=== PATIENT | male | born 1970 | race Caucasian/White ===

== ENCOUNTER → 2024-01-16 06:32 | Day surgery (SDC) | payer BC, SELFPAY | LOC: GI 06:32 | PROVIDERS: ATTENDING PHYSICIAN Internal Medicine Gastroenterology | DX: Z12.11 Encounter for screening for malignant neoplasm of colon (principal); Z86.010 Personal history of colon polyps; K64.8 Other hemorrhoids | CPT/HCPCS: G0105 ==

== ENCOUNTER 2024-11-28 21:49 | Emergency (ER) | payer BC, SELFPAY ==
[2024-11-28 21:56] VITALS: BP 187/95
[2024-11-28 22:16] LABS: % Basophils 0.7 % (0-2); % Eosinophils 1.7 % (0-6); % Immature Granulocytes 0.2 % (0-0.5); % Lymphocytes 29.4 % (20.5-51.1); % Monocytes 9.6 % (1.7-9.3); % Neutrophils 58.4 % (42.2-75.2); Absolute Basophils 0.1 10^3/uL (0-0.2); Absolute Eosinophils 0.1 10^3/uL (0-0.7); Absolute Lymphocytes 2.5 10^3/uL (1.2-3.4); Absolute Monocytes 0.8 10^3/uL (0.1-0.6); Absolute Neutrophils 4.9 10^3/uL (1.4-6.5); Hemoglobin 15.2 g/dL (13.0-18.0); Mean Corp Hgb Conc. 35.3 g/dL (33.0-37.0); Mean Corpuscular Hgb 29.9 pg (27.0-31.0); Mean Corpuscular Volume 84.6 fL (80.0-94.0); Mean Platelet Volume 9.1 fL (7.4-10.4); Nucleated Red Blood Cells % 0 % (-); Platelet Count 217 10^3/uL (130-400); Red Blood Cell Count 5.08 10^6/uL (4.70-6.10); Red Cell Dist. Width 11.9 % (11.5-14.5); White Blood Cell Count 8.3 10^3/uL (4.8-10.8)
[2024-11-28 22:38] LABS: ALT (SGPT) 75 U/L (0-50); AST (SGOT) 38 U/L (17-59); Albumin 4.8 g/dl (3.5-5.0); Alkaline Phosphatase 73 U/L (38-126); Blood Urea Nitrogen 24 mg/dl (9-20); Calcium 9.6 mg/dl (8.4-10.2); Carbon Dioxide 25 mmol/L (22-30); Chloride 106 mmol/L (98-107); Glucose 144 mg/dl (70-99); Potassium 3.8 mmol/L (3.5-5.1); Sodium 140 mmol/L (135-145); Total Bilirubin 0.7 mg/dl (0.2-1.3); Total Protein 7.7 g/dl (6.3-8.2); eGFR > 60.00
[2024-11-28 22:48] LABS: Troponin I < 0.012 ng/ml
--- NOTE | 2024-11-29 00:34 | ED.GENMED ---
History of Present Illness
General
Chief Complaint: Cardiac Symptoms
Time Seen by Provider: 11/29/24 00:34
History of Present Illness
History of Present Illness:
TIME OF INITIAL EVALUATION
- 12:35 PM
REVIEW OF OLD RECORDS
- history of high blood pressure and hyperlipidemia; I reviewed records, the patient had a colonoscopy in 2018 and 2023
Note:
CHIEF COMPLAINT(S)
Palpitations and elevated blood pressure.
HISTORY OF PRESENT ILLNESS
The patient is a 54-year-old male with a history of hypertension, presenting with palpitations and elevated blood pressure. Symptoms began approximately three weeks ago with episodic pressure headaches occurring at work. These headaches were brief
and self-resolving. The patient reported no crushing chest pain but noted awareness of heartbeats which he described as 'palpitations.' He denied having sustained any EKG abnormalities, and past EKGs were normal. Blood pressure readings have been
elevated, with measurements around 154/100 mmHg today. The patient takes losartan 50 mg / 12.5 mg hydrochlorothiazide. He experiences concern that emotions related to minor palpitations may exacerbate the perception of symptoms due to existing
stress.
ADDITIONAL HISTORY OBTAINED FROM SOURCES OTHER THAN THE PATIENT
According to the patient�s monitoring data since arrival, he has had a stable heart rate but elevated blood pressure.
CHRONIC MEDICAL CONDITIONS SIGNIFICANTLY AFFECTING CARE
Chronic conditions affecting care: Hypertension.
SOCIAL HISTORY
The patient noted negative experiences in the past with beta blockers prescribed in his 20s or 30s that led to feelings of depression.
MEDICATIONS
The patient is currently on antihypertensive medication, which includes a thiazide diuretic.
PHYSICAL EXAM
- Nursing notes reviewed and vital signs reviewed.
- patient monitor shows normal rhythm without extra beats or arrhythmias.
PLAN
The patient is advised to follow up with a police patrol lieutenant, especially for the noted EKG abnormality indicating possible, but asymptomatic, cardiac ischemia. Arrangements for expedited cardiology consultation have been initiated. Additionally, the
patient should discuss with his primary care physician potential adjustments to his antihypertensive medication dosage.
DIFFERENTIAL DIAGNOSIS
The Differential Diagnosis includes, in no particular order and is not limited to:
1. Hypertension
2. Palpitations
3. Stress-related palpitations
4. Cardiac ischemia
5. Anxiety or panic disorder
6. Medication side effects
7. Sinus arrhythmia
8. Secondary hypertension due to medication
9. Essential hypertension
10. Coronary artery disease
RADIOLOGY
- Not indicated
EKG
- Sinus 69, anterior T wave inversion
LABS
- Troponin and basic labs normal, sodium normal
UPDATE
-SUMMARY OF ENCOUNTER
The patient, a 54-year-old male with hypertension, presented to the emergency department with palpitations and elevated blood pressure. The patient reported episodic pressure headaches three weeks ago and described awareness of heartbeats as
palpitations. He denied chest pain but was concerned about the persistent high blood pressure readings. The patients heart rate was stable, but he experienced fluctuations in blood pressure up to 187/ over lower values, including 143 and 150s. The
physical examination and cardiac monitoring showed no arrhythmias. The patients sodium levels were normal, implying tolerance for an increased dose of hydrochlorothiazide, if needed. Anterior T-wave inversions was noted on the EKG, possibly
indicating asymptomatic cardiac ischemia. The absence of serious cardiac symptoms such as crushing chest pain led to a decision for outpatient management with cardiology follow-up.
DISPOSITION
The patient was discharged from the emergency department with instructions to follow up with a police patrol lieutenant regarding the noted EKG T-wave inversion and to discuss any need for medication adjustment with his primary care physician.
ASSESSMENT
The patient has hypertension with intermittent palpitations and a pertinent finding of EKG T-wave inversion that needs follow-up.
PLAN
The patient is advised to consult with a police patrol lieutenant and possibly increase his antihypertensive medication dosage under the guidance of his primary care physician.
INDEPENDENT REVIEW OF LABS AND INTERPRETATION OF TESTS
My independent interpretation of the patient monitor shows a normal rhythm without extra beats or arrhythmias. His sodium level is normal, supporting medication adjustment considerations.
FOLLOW-UP INSTRUCTIONS
The patient should follow up with cardiology for further evaluation of the EKG T-wave inversion and with his primary care physician regarding medication adjustment.
MEDICATION RECONCILIATION
The patient was advised on the potential increase of his thiazide diuretic dosage, specifically hydrochlorothiazide.
MEDICAL DECISION MAKING
1. Number & Complexity of Problems:
Chronic conditions affecting care: Hypertension. Differential diagnoses discussed included potential cardiac ischemia.
2. Data Reviewed:
Category 1: Cardiac monitoring and EKG findings were reviewed, showing normal rhythm and T-wave inversion, respectively.
3. Risk:
Consideration for admission was made due to the potential risk of cardiac ischemia. However, outpatient management was determined to be appropriate considering stable vitals, symptom control, and availability of follow-up with a police patrol lieutenant. The
patient does not describe any pressure or tightness and only was concerned about the palpitations. His symptoms are not exertional in nature.
PATHOLOGIES TO CONSIDER
- Cardiac ischemia
- Coronary artery disease
- Essential hypertension
Phy Exam
Physical Exam
Physical Exam:
See HPI
Course
Orders/Labs/Results
Orders:
Orders
11/28/24 21:49
ECG [Electrocardiogram (*1)] Urgent
Reason for Study: Chest Pain
EKG- Treatment ONCE
11/28/24 22:07
Complete Blood Count/With Diff Urgent
Comprehensive Metabolic Panel Urgent
Troponin I Urgent
Abnormal Lab Results
11/28/24
22:07
Absolute Monos (auto) 0.8 H 10^3/uL
(0.1-0.6)
Monocytes % 9.6 H %
(1.7-9.3)
BUN 24 H mg/dl
(9-20)
Glucose 144 H mg/dl
(70-99)
ALT 75 H U/L
(0-50)
11/28/24 22:07
11/28/24 22:07
Vital Signs
Initial and Last Documented VS:
Initial Vital Signs
Pulse Resp BP Pulse Ox
76 18 187/95 98
11/28/24 21:56 11/28/24 21:56 11/28/24 21:56 11/28/24 21:56
Last Documented Vital Signs
Temp Pulse Resp BP Pulse Ox
37.1 C 54 18 145/99 96
11/28/24 22:01 11/29/24 01:08 11/29/24 01:08 11/29/24 01:08 11/29/24 01:08
*Pulse Oximetry
SaO2: 98
*Critical Care Note
Total Time (30-74mins, 75-104mins- exclusive of procedures): Not Applicable
ED Attending Note
-
Portions of this chart may have been created with voice recognition software.� Occasional wrong word or��sound alike� substitutions may have occurred due to the inherent limitations of voice recognition software.
Discharge Plan
Departure
Patient Disposition: Home (Routine Discharge)
Date of Disposition: 11/29/24
Time of Disposition: 01:06
Patient with high blood pressure during this ER visit?: Yes
Discharge Problem:
Palpitations
Instructions: Palpitations, Chest Pain DCA Follow Up, BLOOD PRESSURE
Referrals:
Nini Granados PA-C [Family Provider, Family Practice]
Suleman Tomlin MD [Active, Cardiology]
Activity Restrictions/Additional Instructions:
Your initial blood pressure was rather high at 187/95. Without intervention it was down to the 140s / 90s range. Given the forceful beating of the heart sensation, in the setting of high blood pressure readings, I recommend that you double up on
your blood pressure medication by taking 2 pills at the same time each morning. Your basic blood work including sodium and troponin (test for heart attack) are negative. I have given you the contact information for a local police patrol lieutenant to
follow-up with (Dr. Tomlin).
Interventions
Interventions:
*Risk Screen - Suicide Last Done: 11/28/24 22:00
*General Assessment Last Done: 11/28/24 22:00
*Neglect/Abuse Screening Last Done: 11/28/24 22:00
*ED COVID-19 Vaccine History Last Done: 11/28/24 22:00
Discharge Date and Time
Print Language: KYRGYZ
[2024-11-29 01:08] VITALS: BP 145/99
--- NOTE | 2024-11-29 01:16 | ED.ADDNOTE ---
ED Addendum
ED Addendum
ED Addendum Note:
This is a continuation of note for ED visit 11/29/2024 to include the physical examination:
- General: Well appearing in no distress, hypertensive
- HEENT: Moist oral mucosa
- Cardiovascular: No murmurs, normal heart rate, regular rhythm, No chest wall tenderness
- Pulmonary: No respiratory distress, breath sounds are clear and equal
- Abdomen: Soft with no peritoneal signs, no tenderness
- Neurologic: Excellent strength all extremities, no coordination deficits
- Psychiatric: Appropriate mental status, normal insight and judgement
- Extremities: Nontender, no edema, moves all extremities equally
- Skin: No rash, no lesions
Cardiac monitoring was obtained which shows a sinus rhythm with rates of around 58 bpm which is normal
Pulse ox normal at 96% on room air
== END 2024-11-29 01:27 | disposition home or self-care (01) ==
LOC: EMR 21:49
PROVIDERS: Emergency Medicine; EMERGENCY PHYSICIAN Emergency Medicine; FAMILY PHYSICIAN Student in an Organized Health Care Education/Training Program
DX: R00.2 Palpitations (principal); R51.9 Headache, unspecified; I10 Essential (primary) hypertension; Z79.899 Other long term (current) drug therapy
CPT/HCPCS: 99283; 80053; 84484; 85025; 93005

== ENCOUNTER → 2024-12-27 14:45 | Outpatient (REF) | payer BC, SELFPAY | LOC: HWRCS 14:45 | PROVIDERS: ATTENDING PHYSICIAN Internal Medicine Cardiovascular Disease; FAMILY PHYSICIAN Student in an Organized Health Care Education/Training Program | DX: I35.0 Nonrheumatic aortic (valve) stenosis (principal) | CPT/HCPCS: 93306 ==

== ENCOUNTER → 2024-12-28 07:59 | Outpatient (REF) | payer BC, SELFPAY | LOC: RCS 07:59 | PROVIDERS: ATTENDING PHYSICIAN Internal Medicine Cardiovascular Disease; FAMILY PHYSICIAN Student in an Organized Health Care Education/Training Program | DX: R94.31 Abnormal electrocardiogram [ECG] [EKG] (principal); I35.0 Nonrheumatic aortic (valve) stenosis | CPT/HCPCS: 78452; 93017; A9500 ==